=== PATIENT | female | born 1975 | race Caucasian/White ===

== ENCOUNTER → 2023-10-04 18:32 | Outpatient (REF) | payer BC, SELFPAY | LOC: WDC 18:32 | PROVIDERS: ATTENDING PHYSICIAN Nurse Practitioner | DX: Z12.31 Encounter for screening mammogram for malignant neoplasm of breast (principal) | CPT/HCPCS: 77063; 77067 ==

== ENCOUNTER → 2024-10-07 11:57 | Outpatient (REF) | payer BC, SELFPAY | LOC: WDC 11:57 | PROVIDERS: ATTENDING PHYSICIAN Nurse Practitioner | DX: Z12.31 Encounter for screening mammogram for malignant neoplasm of breast (principal) | CPT/HCPCS: 77063; 77067 ==